=== PATIENT | male | born 1995 | race Caucasian/White ===

== ENCOUNTER 2025-01-12 13:10 | Emergency (ER) | payer BC ==
[2025-01-12] MEDS: cefTRIAXone 1 GM, Lidocaine 1% 2.1 ML IM ONE (13:49)
== END 2025-01-12 14:03 | disposition home or self-care (01) ==
LOC: JD.ED 13:10
DX: L03.116 Cellulitis of left lower limb (principal); Z79.899 Other long term (current) drug therapy
CPT/HCPCS: 96372; 99283; J0696; J2003; 99284